=== PATIENT | female | born 2000 | race Hispanic/Latino ===

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

== ENCOUNTER 2018-07-15 23:07 | Observation (INO) | payer MEDICAID ==
[~2018-07-15] VITALS: Ht 154.9 cm; Wt 81.2 kg
[2018-07-15] MEDS ORDERED: LACTATED RINGERS 1000ML 1,000 ML IV SCH (23:30)
[2018-07-15] MEDS ORDERED: PREN-196 PO (23:39)
[2018-07-15 23:59] LABS: BILIRUBIN,URINE Negative (NEGATIVE); COLOR,URINE Yellow (YELLOW); GLUCOSE, URINE (UA) Negative (NEGATIVE); KETONES,URINE Negative (NEGATIVE); LEUKOCYTE ESTERASE ,URINE Moderate (NEGATIVE); NITRATE,URINE Negative (NEGATIVE); OCCULT BLOOD,URINE Negative (NEGATIVE); PH,URINE 6.5 (5.0-8.0); PROTEIN,URINE Negative (NEGATIVE)
[2018-07-16] LABS: APPEARANCE,URINE SLIGHTLY CLOUDY (CLEAR)
[2018-07-16 00:07] LABS: AMPHET/METH SCREEN,URINE NEGATIVE (NEGATIVE); BARBITURATE SCREEN, URINE NEGATIVE (NEGATIVE); BENZODIAZEPINES SCREEN,URINE NEGATIVE (NEGATIVE); CANNABINOID SCREEN,URINE NEGATIVE (NEGATIVE); COCAINE SCREEN,URINE NEGATIVE (NEGATIVE); OPIATE SCREEN,URINE NEGATIVE (NEGATIVE); PHENCYCLIDINE SCREEN,URINE NEGATIVE (NEGATIVE)
[2018-07-16 00:15] LABS: BACTERIA,URINE Few /HPF (None Seen); RBC,URINE 0-1 /HPF (0-1)
== END 2018-07-16 01:10 | disposition home or self-care (01) ==
LOC: EDH 23:07 → LDH 23:08
PROVIDERS: ADMIT Internal Medicine; ATTEND Internal Medicine
DX: O26.852 Spotting complicating pregnancy, second trimester (principal); O99.333 Smoking (tobacco) complicating pregnancy, third trimester; F17.210 Nicotine dependence, cigarettes, uncomplicated; O26.892 Other specified pregnancy related conditions, second trimester; M54.9 Dorsalgia, unspecified; Z3A.25 25 weeks gestation of pregnancy; Z79.899 Other long term (current) drug therapy
CPT/HCPCS: 59025; 80305; 81001; 99284; G0378 ×2

== ENCOUNTER 2025-02-01 14:10 | Inpatient (IN) | payer SELFPAY ==
[~2025-02-01] VITALS: Ht 157.5 cm; Wt 73.8 kg
[~2025-02-01 14:10] MED LIST: PREN-196 PO
--- NOTE | 2025-02-01 14:11 | NUR ---
SEE TRAUMA FLOW SHEET
[2025-02-01] MEDS: hydroMORPHone 1 MG INJ IVP ONE ×2 (14:22→17:43)
[2025-02-01] MEDS: hydroMORPHone 1 MG INJ ONE (14:26)
[2025-02-01] MEDS ORDERED: IOHEXOL 350 MG/ML 100ML INFUS..BTL IV ONE (14:26)
[2025-02-01 14:30] LABS: BASOPHILS # (AUTO) 0.08 K/uL (0.00-0.20); BASOPHILS % (AUTO) 0.6 % (0.0-5.0); EOSINOPHILS # (AUTO) 0.13 K/uL (0.00-0.70); EOSINOPHILS % (AUTO) 0.9 % (0.0-8.0); HEMATOCRIT 44.2 % (36-48); IMMATURE GRANULOCYTE ABSOLUTE 0.23 K/uL (0-1); LYMPHOCYTES # (AUTO) 5.3 K/uL (1.0-4.8); LYMPHOCYTES % (AUTO) 37.8 % (21.0-51.0); MEAN CORPUSCULAR HEMOGLOBIN 30.4 pg (27.0-33.0); MEAN CORPUSCULAR HGB CONC 34.2 g/dL (32.0-36.0); MEAN CORPUSCULAR VOLUME 88.9 fL (79-99); MONOCYTES # (AUTO) 0.6 K/uL (0.1-1.0); MONOCYTES % (AUTO) 4.6 % (3.0-13.0); NEUTROPHILS # (AUTO) 7.6 K/uL (1.8-7.7); NEUTROPHILS % (AUTO) 54.5 % (40.0-77.0); PLATELET COUNT (AUTO) 266 K/uL (130-400); RED BLOOD CELL COUNT(AUTO) 4.97 MIL/uL (4.00-5.50); RED CELL DISTRIBUTION WIDTH 13.4 % (11.0-15.5)
[2025-02-01 14:41] LABS: INR 0.99 (0.85-1.15); PROTHROMBIN TIME 10.5 SEC (9.6-11.6)
[2025-02-01 14:43] LABS: PARTIAL THROMBOPLASTIN TIME 24.8 SEC (26.3-35.5)
[2025-02-01 14:51] LABS: CARBON DIOXIDE 28 mmol/L (21-32); CHLORIDE 101 mmol/L (101-111); CREATININE 0.7 mg/dL (0.5-1.0); GLOMERULAR FILTR. RATE CALC 122 mL/min (>90); GLUCOSE,RANDOM 124 mg/dL (70-105); SODIUM SERUM 140 mmol/L (136-145); UREA NITROGEN, BLOOD 12 mg/dL (7-18)
[2025-02-01 14:52] LABS: ALCOHOL, BLOOD < 3 mg/dL (0-10)
--- NOTE | 2025-02-01 14:55 | NUR ---
BACK FROM CT
[2025-02-01] MEDS: FENTanyl CITRate PF 50 MCG/1 ML 2ML VIAL IVP ONE (15:15)
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
[2025-02-01] MEDS: teTANUS/diphthERIA TOXOID [ADULT] 0.5 ML VIAL IM ONE (15:19)
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
[2025-02-01 15:31] LABS: BAND NEUTROPHILS % (MANUAL) 6 % (0-2); LYMPHOCYTES % (MANUAL) 42 % (22-44); MAN.DIFF COMMENT-IMPRESSION MANUAL DIFFERENTIAL; MONOCYTES % (MANUAL) 4 % (2-9); PLATELET MORPHOLOGY COMMENT N; REACTIVE LYMPHOCYTES 1 % (0-0); SEGMENTED NEUTROPHILS % 47 % (40-70); TOTAL CELLS COUNTED 100
--- NOTE | 2025-02-01 16:36 | HMCIMG ---
PELVIS 1-2VWS HISTORY: Chest injury COMPARISON: 02/01/2025 TECHNIQUE: Frontal projection of the pelvis was obtained. FINDINGS: There is no acute displaced fracture or dislocation. Bilateral hip joint space narrowing is seen. Degenerative changes are seen. IMPRESSION: 1. Findings as described above.
--- NOTE | 2025-02-01 16:37 | HMCIMG ---
CHEST 1VW HISTORY: Chest injury COMPARISON: None FINDINGS: A frontal projection of the chest was obtained. Mild bilateral pulmonary infiltrates are seen. The heart is borderline enlarged. Degenerative changes are seen. No evidence of aortic calcification is seen. IMPRESSION: 1. Mild bilateral pulmonary infiltrates.
[2025-02-01 16:56] LABS: ADD UA MICROSCOPIC YES; APPEARANCE,URINE CLEAR (CLEAR); BILIRUBIN,URINE NEGATIVE (NEGATIVE); COLOR,URINE LIGHT-YELLOW (YELLOW); GLUCOSE, URINE (UA) NEGATIVE (NEGATIVE); KETONES,URINE 10 mg/dL (NEGATIVE); LEUKOCYTE ESTERASE ,URINE NEGATIVE Leu/uL (NEGATIVE); NITRATE,URINE NEGATIVE (NEGATIVE); OCCULT BLOOD,URINE NEGATIVE (NEGATIVE); PH,URINE 6.5 (5.0-8.0); PROTEIN,URINE 10 mg/dL (NEGATIVE); UROBILINOGEN,URINE 0.2 mg/dL (0.2-1.0)
[2025-02-01 16:59] LABS: AMPHET/METH SCREEN,URINE NEGATIVE (NEGATIVE); BARBITURATE SCREEN, URINE NEGATIVE (NEGATIVE); BENZODIAZEPINES SCREEN,URINE NEGATIVE (NEGATIVE); CANNABINOID SCREEN,URINE POSITIVE (NEGATIVE); COCAINE SCREEN,URINE NEGATIVE (NEGATIVE); OPIATE SCREEN,URINE NEGATIVE (NEGATIVE); PHENCYCLIDINE SCREEN,URINE NEGATIVE (NEGATIVE)
[2025-02-01 17:04] LABS: MUCUS,URINE RARE LPF (None Seen); SQUAMOUS EPITHELIAL CELL,UR FEW /HPF (0-2)
--- NOTE | 2025-02-01 17:26 | NUR ---
FSBS 305 TAKEN AT 1647 IS NOT CORRECT. RECORDED ON INCORRECT CHART. GLUCOSE CORRECTION SHEET SENT TO LAB
[2025-02-01] MEDS: ketOROlac 15MG/ML VIAL (15MG/ML) IV ONE (17:43)
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
[2025-02-01] MEDS ORDERED: hydroMORPHone 1 MG INJ IVP PRN (18:00)
--- NOTE | 2025-02-01 20:58 | NUR ---
PATIENT DOES NOT TAKE ANY PRESCRIBED MEDICATIONS
[2025-02-01 21:53] VITALS: BP 136/87; PULSE 76; RESP 20; TEMP 98.4
[2025-02-02 02:45] VITALS: O2SAT 96
[2025-02-02 04:00] VITALS: BP 139/80; PULSE 101; RESP 20; TEMP 98.1
[2025-02-02] MEDS: morPHINE 4 MG SYG IVP PRN (05:04)
[2025-02-02 08:05] VITALS: BP 120/78; PULSE 89; RESP 18; TEMP 98.3
[2025-02-02 08:10] VITALS: O2SAT 98
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
[2025-02-02 11:26] VITALS: BP 153/96; PULSE 86; RESP 18; TEMP 98.3
[2025-02-02] MEDS: ketOROlac 15MG/ML VIAL (15MG/ML) IV PRN (14:50)
[2025-02-02 16:00] VITALS: BP 134/90; PULSE 85; RESP 18; TEMP 98.3
== END 2025-02-02 18:46 | disposition home or self-care (01) | DRG 206 ==
LOC: EDH 14:10 → EDHIP 14:11 → 3AH 21:28
PROVIDERS: ADMIT Surgery; ATTEND Surgery
PROC: 3E0234Z Introduction of Serum, Toxoid and Vaccine into Muscle, Percutaneous Approach (ICD-10-PCS; principal; 2025-02-01)
DX: S27.322A Contusion of lung, bilateral, initial encounter (principal); Y93.89 Activity, other specified; Y92.89 Other specified places as the place of occurrence of the external cause; Y99.8 Other external cause status; V86.55XA Driver of 3- or 4- wheeled all-terrain vehicle (ATV) injured in nontraffic accident, initial encounter; Z23 Encounter for immunization
CPT/HCPCS: 36415; 70450; 71045; 71260; 72125; 72170; 74177; 80048; 80305; 81001; 84703; 85025; 85610; 85730; 90714; 96374; 99285; G0378; J1171; J1885; J2270; J3010; Q9967